=== PATIENT | female | born 1960 | race Caucasian/White ===

== ENCOUNTER 2022-02-25 07:31 | Outpatient (CLI) | payer OTHER, SELFPAY ==
--- NOTE | ~2022-02-25 | MR_ITS ---
EXAMINATION: MR knee RT wo con DATE: 02/25/2022 08:06 INDICATION: Right knee pain. TECHNIQUE: Magnetic resonance imaging (MRI) of the right knee was performed without intravenous contr ast. Sequences included axial PD-weighted FS FSE, coronal PD-weighted FSE and PD-weighted FS FSE, sag ittal PD-weighted FSE, and sagittal T2-weighted FS FSE. COMPARISON: None. FINDINGS: Medial compartment: There is an undersurface horizontal tear of the junction of body and posterior horn of medial meniscu s peripherally. There is shallow partial-thickness cartilage loss of tibial condyle. There is subchon dral edema-like marrow signal intensity in tibial condyle posteriorly. There is partial-thickness car tilage loss of femoral condyle, deep at the central and posterior articular surface. Osteophytes are noted. Lateral compartment: There is a vertical tear of posterior horn of lateral meniscus. There is shallow partial-thickness ca rtilage loss of tibial condyle and femoral condyle. Osteophytes are noted. Patellofemoral compartment: There is full-thickness cartilage loss of patellar median ridge and lateral facet with mild subchondr al edema-like marrow signal intensity. There is deep partial thickness cartilage loss of patellar med ial facet. There is partial-thickness cartilage loss of trochlea, deep at the central trochlea. Osteo phytes are noted. Ligaments and tendons: The anterior and posterior cruciate ligaments are normal. Medial collateral ligament is normal. There are changes of prior sprain of fibular collateral ligament characterized by thickening and increased signal intensity proximally. The patellar tendon is normal. Fluid: There is a small knee joint effusion. There is trace fluid in a Cadena's cyst. There is mild superfici al infrapatellar bursitis. IMPRESSION: 1. Severe chondrosis of patellofemoral compartment, moderate chondrosis of medial compartment, and mi ld chondrosis of lateral compartment. 2. Tears of medial and lateral menisci. 3. Small knee joint effusion. Reviewed, dictated and finalized at location A. IMPRESSION: 1. Severe chondrosis of patellofemoral compartment, moderate chondrosis of medi al compartment, and mild chondrosis of lateral compartment. 2. Tears of medial and lateral menisci. 3. Small knee joint effusion.
== END 2022-02-25 07:32 ==
LOC: MICIMG 07:33
PROVIDERS: PCP Physician Assistant; Visit Provider Orthopaedic Surgery
DX: M25.561 Pain in right knee (principal); M22.2X1 Patellofemoral disorders, right knee; S83.281A Other tear of lateral meniscus, current injury, right knee, initial encounter; S83.241A Other tear of medial meniscus, current injury, right knee, initial encounter; M25.461 Effusion, right knee
CPT/HCPCS: 73721